=== PATIENT | male | born 1960 | race Caucasian/White ===

== ENCOUNTER → 2016-08-16 | Outpatient (CLI) | payer OTHER ==
[2015-08-19 15:05] VITALS: BP 121/77
[~2016-08-16] MED LIST: ASPI81TA9 PO; ATORVASTATIN CA80 MG PO; ISOS30TA4 PO; LISI-338 PO; METO25TA4 PO; PRAS10TA4 PO
--- NOTE | 2016-08-16 10:33 | CARD ---
APPROVED REPORT EXAM: Two-dimensional and M-mode echocardiogram with Doppler and color Doppler. Other Information Quality : GoodHR: 77bpm Rhythm : NSR INDICATION Cardiac Disease: CAD RISK FACTORS Hypertension Obesity 2D DIMENSIONS RVDd2.4 (2.9-3.5cm)Left Atrium(2D)3.4 (1.6-4.0cm) IVSd1.4 (0.7-1.1cm)Aortic Root(2D)3.1 (2.0-3.7cm) LVDd4.1 (3.9-5.9cm)LVOT Diameter2.4 (1.8-2.4cm) PWd1.3 (0.7-1.1cm)LVDs3.0 (2.5-4.0cm) FS (%) 28.1 %SV41.8 ml LVEF(%)54.8 (>50%) Aortic Valve AoV Peak Bhavik.106.0cm/sAoV VTI21.2cm AO Peak GR.4.5mmHgLVOT Peak Bhavik.106.8cm/s AO Mean GR.2mmHgAVA (VMAX)4.74cm2 Mitral Valve MV E Ybgkxodm58.7cm/sMV DECEL [id number] MV A Ihxqagly43.2cm/sE/A Ratio0.8 MV A [id number] Pulmonary Valve PV Peak Tucfjpjc17.6cm/s LEFT VENTRICLE The left ventricle is normal size. There is mild concentric left ventricular hypertrophy. The left ve ntricular systolic function is normal and the ejection fraction is within normal range. The Ejection Fraction is 55-60%. There is normal LV segmental wall motion. Transmitral Doppler flow pattern is Gra de I-abnormal relaxation pattern. RIGHT VENTRICLE The right ventricle is normal size. There is normal right ventricular wall thickness. The right ventr icular systolic function is normal. ATRIA The left atrium is mildly dilated. The right atrium size is normal. The interatrial septum is intact with no evidence for an atrial septal defect or patent foramen ovale as noted on 2-D or Doppler imagi ng. AORTIC VALVE The aortic valve is mildly thickened. Doppler and Color Flow revealed no significant aortic regurgita tion. There is no significant aortic valvular stenosis. MITRAL VALVE Mitral annular calcification is mild. The mitral valve leaflets are thickened. There is no evidence o f mitral valve prolapse. There is no mitral valve stenosis. Doppler and Color Flow revealed no mitral valve regurgitation noted. TRICUSPID VALVE The tricuspid valve is normal in structure and function. Doppler and Color Flow revealed no tricuspid valve regurgitation noted. PULMONIC VALVE Doppler and Color Flow revealed no pulmonic valvular regurgitation. GREAT VESSELS The aortic root is normal in size. The ascending aorta is normal in size. The IVC is normal in size a nd collapses >50% with inspiration. PERICARDIAL EFFUSION There is no evidence of significant pericardial effusion. Critical Notification Critical Value: No <Conclusion> The left ventricular systolic function is normal and the ejection fraction is within normal range. Th e Ejection Fraction is 55-60%. There is normal LV segmental wall motion.
== END | disposition home or self-care (01) ==
LOC: ECHO 09:05
PROVIDERS: ATTEND Internal Medicine Cardiovascular Disease
DX: I25.10 Atherosclerotic heart disease of native coronary artery without angina pectoris (principal); I51.7 Cardiomegaly; I34.8 Other nonrheumatic mitral valve disorders
CPT/HCPCS: 93306

== ENCOUNTER 2016-08-29 17:40 | Emergency (ER) | payer OTHER ==
[~2016-08-29] VITALS: Ht 188 cm; Wt 170.1 kg
[2016-08-29] MEDS ORDERED: IV NORMAL SALINE 1000ML BAG 1,000 ML IV SCH (18:08)
--- NOTE | 2016-08-29 18:13 | ED.ADGEN ---
Past Medical History Past Medical History: CAD, High Cholesterol, Hypertension Past Surgical History: Cholecystectomy Additional Past Surgical Histo: gb 1993; cardiac stents; carpal tunnel Alcohol Use: Rarely Drug Use: None Adult General Chief Complaint Chief Complaint: SHORTNESS OF BREATH HPI HPI Patient is a 56 year old man, history of hypertension, CAD, hyper cholesterolemia, type 2 diabetes mellitus, who presents to the emergency department with complaint of productive cough, fever, chills, shortness of breath, generalized weakness and malaise over the past several days. Patient noted be febrile upon arrival to the ED, tachycardic with a heart rate in the 120s, complaining of chest and abdominal soreness with coughing. He states he did not receive this laxation this year. Patient generally smokes a half-pack of cigarettes a day, but is only smoked 2 cigarettes today due to the persistence of cough. Denies any other chest pain, nausea or vomiting, any focal weakness numbness or tingling. Denies any sick contacts or exposures, any recent travel or surgery, history of DVT or PE. He states she's been using Robitussin and cold and flu medication at home, but no antipyretics. Review of Systems Review of Systems Constitutional: Fever and chills over the past several days. Eyes: Denies change in visual acuity. [] HENT: Denies nasal congestion or sore throat. [] Respiratory: Cough occasionally productive of white sputum, shortness of breath , chest soreness.. [] Cardiovascular: Denies chest pain or edema. [] GI: Denies abdominal pain, nausea, vomiting, bloody stools or diarrhea. [] : Denies dysuria. [] Musculoskeletal: Denies back pain or joint pain. [] Integument: Denies rash. [] Neurologic: Denies headache, focal weakness or sensory changes. [] Endocrine: Denies polyuria or polydipsia. [] Lymphatic: Denies swollen glands. [] Psychiatric: Denies depression or anxiety. [] Current Medications Current Medications Current Medications Medications (Trade) Dose Ordered Sig/Pedro Start Time Stop Time Status Last Admin Dose Admin Acetaminophen (Tylenol) 1,000 mg 1X ONCE 08/29/16 18:15 08/29/16 18:16 DC 08/29/16 18:49 1,000 MG Sodium Chloride (Iv Sodium Chloride 0.9% 1000ml Bag) 1,000 ml @ 1,000 mls/hr Q1H 08/29/16 18:08 08/29/16 19:07 DC 08/29/16 18:38 1,000 MLS/HR Allergies Allergies Allergies Coded Allergies Type Severity Reaction Last Updated Verified diazepam Allergy Severe Anxiety 11/28/13 Yes Physical Exam Physical Exam Constitutional: Well developed, well nourished, no acute distress, non-toxic appearance. [] HENT: Normocephalic, atraumatic, bilateral external ears normal, oropharynx moist, no oral exudates, nose normal. [] Eyes: PERRLA, EOMI, conjunctiva normal, no discharge. [] Neck: Normal range of motion, no tenderness, supple, no stridor. [] Cardiovascular:Heart rate regular rhythm, no murmur [] Lungs & Thorax: Bilateral breath sounds clear to auscultation [] Abdomen: Bowel sounds normal, soft, no tenderness, no masses, no pulsatile masses. [] Skin: Warm, dry, no erythema, no rash. [] Back: No tenderness, no CVA tenderness. [] Extremities: No tenderness, no cyanosis, no clubbing, ROM intact, no edema. [] Neurologic: Alert and oriented X 3, normal motor function, normal sensory function, no focal deficits noted. [] Psychologic: Affect normal, judgement normal, mood normal. [] Current Patient Data Vital Signs Vital Signs Date Time Temp Pulse Resp B/P Pulse Ox O2 Delivery O2 Flow Rate FiO2 08/29/16 17:45 100 117 16 174/107 92 Room Air 100.0 Lab Values Laboratory Tests Test 08/29/16 17:52 08/29/16 18:15 Influenza Type A Antigen Positive (NEGATIVE) Influenza Type B Antigen Negative (NEGATIVE) White Blood Count 7.7x10^3/uL (4.0-11.0) Red Blood Count 5.31x10^6/uL (4.30-5.70) Hemoglobin 16.3g/dL (13.0-17.5) Hematocrit 48.6% (39.0-53.0) Mean Corpuscular Volume 92fL (79-100) Mean Corpuscular Hemoglobin 31pg (25-35) Mean Corpuscular Hemoglobin Concent 34g/dL (31-37) Red Cell Distribution Width 13.1% (11.5-14.5) Platelet Count 277x10^3/uL (140-400) Neutrophils (%) (Auto) 83% (31-73) H Lymphocytes (%) (Auto) 7% (24-48) L Monocytes (%) (Auto) 9% (0-9) Eosinophils (%) (Auto) 1% (0-3) Basophils (%) (Auto) 1% (0-3) Neutrophils # (Auto) 6.3x10^3uL (1.8-7.7) Lymphocytes # (Auto) 0.5x10^3/uL (1.0-4.8) L Monocytes # (Auto) 0.7x10^3/uL (0.0-1.1) Eosinophils # (Auto) 0.1x10^3/uL (0.0-0.7) Basophils # (Auto) 0.1x10^3/uL (0.0-0.2) Sodium Level 137mmol/L (136-145) Potassium Level 3.8mmol/L (3.5-5.1) Chloride Level 102mmol/L (98-107) Carbon Dioxide Level 25mmol/L (21-32) Anion Gap 10 (6-14) Blood Urea Nitrogen 16mg/dL (8-26) Creatinine 1.0mg/dL (0.7-1.3) Estimated GFR (Cockcroft-Gault) 77.9 BUN/Creatinine Ratio 16 (6-20) Glucose Level 207mg/dL (70-99) H Lactic Acid Level 0.5mmol/L (0.4-2.0) Calcium Level 8.7mg/dL (8.5-10.1) Total Bilirubin 0.5mg/dL (0.2-1.0) Aspartate Amino Transferase (AST) 26U/L (15-37) Alanine Aminotransferase (ALT) 40U/L (16-63) Alkaline Phosphatase 111U/L (46-116) Total Protein 7.9g/dL (6.4-8.2) Albumin 3.7g/dL (3.4-5.0) Albumin/Globulin Ratio 0.9 (1.0-1.7) L Laboratory Tests 08/29/16 18:15 Laboratory Tests 08/29/16 18:15 EKG EKG EC: Sinus tachycardia, heart rate 120 bpm, upright axis, QTC of 409, NM of 132, QRS of 82, no ST elevations or depressions, no evidence of acute ST abnormalities. As interpreted by me. [] ECG: Rhythm strip: Heart rate 78 bpm, sinus rhythm, no ectopy. As interpreted by me. Radiology/Procedures Radiology/Procedures Chest x-ray: PA and lateral: Normal cardiopulmonary silhouette, novel traits, no effusions, no soft tissue or bone abdomen abnormalities identified. As interpreted by me. [] Course & Med Decision Making Course & Med Decision Making Pertinent Labs and Imaging studies reviewed. (See chart for details) Patient's history and examination is consistent with likely viral illness, patient's flu swab was positive for influenza type A. Laboratory studies reveal an elevated glucose at 207, otherwise unremarkable. Patient is a family history of diabetes, personal history, is noted to be obese as stated. After receiving antipyretics and IV fluids in the ED, patient states he is feeling much better, heart rate is now in the 80s to the low 100s, patient ambulated in the ED, heart rate was in the 70s and 80s, oxygen saturation in the upper 90s, and he denied any complaints with ambulation. We did discuss concerning symptoms that would prompt return, symptomatic management, importance of staying out of work until he is fever free for 24 hours without antipyretics, he doesn't appointment on Sunday with his primary care provider, we'll follow that time for reevaluation of his blood glucose and additional evaluation as needed, to return to the ED at any time if concerning symptoms develop. Patient voiced understanding and agreement with this plan and instructions, discharged home in stable condition with Tessalon Perles work no, and instructions regarding antipyretics. Dragon Disclaimer Dragon Disclaimer This electronic medical record was generated, in whole or in part, using a voice recognition dictation system. Departure Impression: Primary Impression: Influenza A Additional Impression: Hyperglycemia Disposition: HOME, SELF-CARE Condition: IMPROVED Scripts Benzonatate (Tessalon Perle)100 Mg Capsule1 Cap PO TID PRN COUGH #21 CAP Prov:JUNG HAYNES DO 08/29/16 Problem Qualifiers JUNG HAYNES DO Aug 29, 2016 18:13
[2016-08-29] MEDS ORDERED: ACETAMINOPHEN 500 MG TABLET PO ONE (18:15)
[2016-08-29] MEDS ORDERED: LISI10TA2 PO (18:16)
--- NOTE | 2016-08-29 18:21 | EKG ---
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
[2016-08-29 18:25] LABS: BASO # 0.1 x10^3/uL (0.0-0.2); BASO % 1 % (0-3); EOS % 1 % (0-3); HEMATOCRIT 48.6 % (39.0-53.0); HEMOGLOBIN 16.3 g/dL (13.0-17.5); LYMPH # 0.5 x10^3/uL (1.0-4.8); LYMPH % 7 % (24-48); MEAN CORPUSCULAR HEMOGLOBIN 31 pg (25-35); MEAN CORPUSCULAR HGB CONC 34 g/dL (31-37); MEAN CORPUSCULAR VOLUME 92 fL (79-100); MONO % 9 % (0-9); NEUT % 83 % (31-73); PLATELET COUNT 277 x10^3/uL (140-400); RED BLOOD COUNT 5.31 x10^6/uL (4.30-5.70); RED CELL DISTRIBUTION WIDTH 13.1 % (11.5-14.5); WHITE BLOOD COUNT 7.7 x10^3/uL (4.0-11.0)
[2016-08-29 18:36] LABS: OBC FLU VALID
[2016-08-29 18:44] LABS: CALCIUM 8.7 mg/dL (8.5-10.1); GFR 77.9; POTASSIUM 3.8 mmol/L (3.5-5.1)
[2016-08-29 18:49] LABS: ALBUMIN 3.7 g/dL (3.4-5.0); ALBUMIN/GLOBULIN RATIO 0.9 (1.0-1.7); TOTAL BILIRUBIN 0.5 mg/dL (0.2-1.0); TOTAL PROTEIN 7.9 g/dL (6.4-8.2)
[2016-08-29 19:49] VITALS: BP 145/65
[2016-08-29] MEDS ORDERED: BENZ100C PO (20:04)
--- NOTE | 2016-08-30 09:10 | RAD ---
Chest, 2 views, 08/29/2016: History: Cough Comparison is made to a study from 08/17/2015. The heart size is normal. The mediastinum is mildly prominent along the inferior aspect of the aortic knob and superior aspect of the left hilum. Although this may be due to aortic tortuosity, a mass or adenopathy cannot be excluded. No vascular congestion is seen. No consolidation is evident. There is no evidence of pleural fluid. Moderate hypertrophic spurring is present in the spine. IMPRESSION: 1. Mild mediastinal prominence near the AP window level as described above. CT scanning is suggested for further evaluation. 2. No acute pulmonary infiltrates. Note: The findings were called to personnel in the [facility] ER at 9:10 AM on 08/30/2016.
== END 2016-08-29 20:14 | disposition home or self-care (01) ==
LOC: ER 17:40
DX: J09.X2 Influenza due to identified novel influenza A virus with other respiratory manifestations (principal); E11.65 Type 2 diabetes mellitus with hyperglycemia; E78.00 Pure hypercholesterolemia, unspecified; I10 Essential (primary) hypertension; I25.10 Atherosclerotic heart disease of native coronary artery without angina pectoris; Z90.49 Acquired absence of other specified parts of digestive tract; Z95.5 Presence of coronary angioplasty implant and graft; Z88.8 Allergy status to other drugs, medicaments and biological substances
CPT/HCPCS: 36415; 71020; 80053; 83605; 85027; 87804; 93005; 96360; 99285; J7030

== ENCOUNTER 2021-04-19 17:19 | Emergency (ER) | payer MEDICARE ==
[~2021-04-19] VITALS: Ht 188 cm; Wt 160.9 kg
[~2021-04-19 17:19] MED LIST changes: +ASPI-886 PO; -ASPI81TA9 PO; +BENZ100C PO; +CLIN300C9 PO; +GLYB3TAB3 PO; +INSU100I13 SQ; -ISOS30TA4 PO; +ISOS30TA68 PO; -LISI-338 PO; +LISI-517 PO; +LISI10TA16 PO; +OXYC1TAB15 PO; -PRAS10TA4 PO; +PRAS10TA9 PO
--- NOTE | 2021-04-19 18:28 | PHYS DOC ---
Past Medical History Past Medical History: CAD, High Cholesterol, Hypertension Past Surgical History: Cholecystectomy Additional Past Surgical Histo: gb 1993; cardiac stents; carpal tunnel Smoking Status: Current Every Day Smoker Alcohol Use: Occasionally Drug Use: None General Adult EDM: Chief Complaint: ABSCESS HPI: HPI: Patient is a 61 year old male past medical history hypertension diabetes hyperlipidemia coronary artery disease insomnia and chronic skin abscesses presents with a chief complaint of abscess in his right inner thigh. Patient states current abscess has been present for 3 days progressive becoming larger. Patient has been using prescription clindamycin topical medication with no relief relief. On exam area of patient's right inner thigh there is a firm area that is 6 x 12 cm with surrounding erythema. Review of Systems: Review of Systems: Review of systems: Constitutional symptoms- No fever, no chills. Eyes- No Discharge, No Visual Loss Respiratory symptoms- No shortness of breath, No wheezing, No Dyspnea on Exertion Cardiovascular Systems; No chest pain, No Palpitations, No syncope Gastrointestinal symptoms: NO abdominal pain, no nausea, no vomiting or diarrhea. Genitourinary symptoms: No dysuria. Musculoskeletal symptoms: No back pain No extremity pain. NEUROLOGICAL Symptoms: No headache, no generalized weakness; No focal Weakness Skin: No rash. Positive abscess positive cellulitis Heart Score: C/O Chest Pain: N/A Risk Factors: Risk Factors: DM, Current or recent (<one month) smoker, HTN, HLP, family history of CAD, obesity. Risk Scores: Score 0 - 3: 2.5% MACE over next 6 weeks - Discharge Home Score 4 - 6: 20.3% MACE over next 6 weeks - Admit for Clinical Observation Score 7 - 10: 72.7% MACE over next 6 weeks - Early Invasive Strategies Allergies: Allergies: Allergies Coded Allergies Type Severity Reaction Last Updated Verified diazepam Allergy Severe Anxiety 11/28/13 Yes Physical Exam: PE: General: alert, no acute distress. Skin: warm, dry and intact, no erythema, no rash. HENT: bilateral external ears normal, oropharynx moist, nose normal. Head:: Normocephalic, atraumatic. Neck: Trachea midline. Eyes: EOMI, Normal conjunctiva, No drainage CARDIOVASCULAR: Regular rate and rhythm RESPIRATORY: No respiratory distress Back: Full range of motion. MUSCULOSKELETAL: Full range of motion of bilateral upper and lower extremities. GASTROINTESTINAL: Abdomen soft without rebound or guarding. NEUROLOGICAL: Alert and noted to person, place and time. No neurological deficits observed Psychiatric: Cooperative. Normal judgment EKG: EKG: [] Radiology/Procedures: Radiology/Procedures: [] Course & Med Decision Making: Course & Med Decision Making Pertinent Labs and Imaging studies reviewed. (See chart for details) [] I&D was performed. 5 cc 1% lidocaine used for local anesthesia once anesthesia was achieved area was cleaned with Betadine 11 blade was used a 2 cm incision was placed. Large amount of purulent fluid expressed. Loculated's broken up. Flushed with approximately 30 cc of NS. Wound was packed with iodoform. Dressing was placed. Patient advised to remove packing within 48 h. Patient advised he can remove the packing himself or return to the ER. Patient will be prescribed cephalexin 500 4 times daily for 10 days and hydrocodone for pain. Dragon Disclaimer: Dragon Disclaimer: This electronic medical record was generated, in whole or in part, using a voice recognition dictation system. Departure Departure Impression: Primary Impression: Abscess Disposition: 01 HOME / SELF CARE / HOMELESS Condition: STABLE Referrals: IVAN MESA APRN (PCP) Patient Instructions: Abscess, Abscess, Care After Additional Instructions: May remove packing in 48hrs yourself or return to ER for packing removal. Scripts Hydrocodone/Acetaminophen (Hydrocodone-Acetamin 5-325 mg) 1 Each Tablet 1 EACH PO Q6-8HRS, #14 TAB Prov: KEEGAN VELÁSQUEZ I DO 04/19/21 Cephalexin (KEFLEX) 500 Mg Capsule 1 CAP PO QID, #40 CAP Prov: KEEGAN VELÁSQUEZ I DO 04/19/21 KEEGAN VELÁSQUEZ I DO Apr 19, 2021 18:28
[2021-04-19] MEDS ORDERED: LIDOCAINE 1%/EPI 1:100,000 20 ML VIAL. INJ ONE (18:45)
[2021-04-19] MEDS ORDERED: CEPH500C PO (19:44)
[2021-04-19] MEDS ORDERED: HYDR-2759 PO (19:45)
[2021-04-19 19:57] VITALS: BP 100/54
== END 2021-04-19 19:59 | disposition home or self-care (01) ==
LOC: ER 17:19
DX: L02.415 Cutaneous abscess of right lower limb (principal); I10 Essential (primary) hypertension; E78.00 Pure hypercholesterolemia, unspecified; I25.10 Atherosclerotic heart disease of native coronary artery without angina pectoris; F17.200 Nicotine dependence, unspecified, uncomplicated; Z95.5 Presence of coronary angioplasty implant and graft; Z88.8 Allergy status to other drugs, medicaments and biological substances
CPT/HCPCS: 10061; 99284; J3490